=== PATIENT | male | born 2000 | race Caucasian/White ===

== ENCOUNTER → 2021-06-05 10:44 | Outpatient (CLI) | payer BC, SELFPAY ==
--- NOTE | ~2021-06-05 | US_ITS ---
EXAMINATION: US right upper quadrant EXAM DATE: 06/05/2021 11:11 INDICATION: Elevated liver enzymes . TECHNIQUE: Multiple grayscale and Doppler images of the abdomen right upper quadrant were obtained (b y a technologist who performed the scan) and subsequently reviewed. There is no prior study for ashley granado. FINDINGS: The pancreatic head and body are normal in appearance. The pancreatic tail is not visualized. The l iver has normal echogenicity and contour. There are no focal liver lesions identified. There is no evidence of intrahepatic biliary duct dilation. Portal venous flow was seen in the hepatopedal, nor mal direction and has normal Doppler waveform. No right-sided hydronephrosis. Common bile duct measures 3 mm, which is normal. The gallbladder wall is normal in thickness, with ex pected amount of distention. No sonographic evidence of pericholecystic fluid. There is a 6 mm gall bladder polyp not likely clinically significant. No cholelithiasis suspected. Technologist performin g exam reports patient did not demonstrate sonographic Mckeon's sign. Please note that this sign is less reliable in patients who have received pain medication. IMPRESSION: 1. Small gallbladder polyp. 2. Otherwise unremarkable exam. Reviewed, dictated and finalized at location G.
== END ==
DX: K82.4 Cholesterolosis of gallbladder (principal); R94.5 Abnormal results of liver function studies
CPT/HCPCS: 76705